=== PATIENT | female | born 1990 | race Caucasian/White ===

== ENCOUNTER 2019-09-13 12:46 | Emergency (ER) | payer OTHER ==
[2019-09-13] MEDS ORDERED: DIPH/PERTUSS(ACELL)/TETANUS VAC/PF 0.5 ML SYR (>=10YO) IM ONE (12:58)
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
[2019-09-13] MEDS ORDERED: CEPHALEXIN 500 MG CAPSULE PO ONE (13:41)
[2019-09-13] MEDS ORDERED: LIDOCAINE 1% INJ-PF (10 MG/ML) 30 ML SDV INJ ONE (13:41)
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
[2019-09-13 15:15] VITALS: BP 118/74
== END 2019-09-13 15:14 | disposition home or self-care (01) ==
LOC: ER 12:46
DX: S81.011A Laceration without foreign body, right knee, initial encounter (principal); X99.1XXA Assault by knife, initial encounter; Z23 Encounter for immunization; J45.909 Unspecified asthma, uncomplicated
CPT/HCPCS: 99282; 90471; 90715; 12001; J3490